=== PATIENT | female | born 1980 | race Caucasian/White ===

== ENCOUNTER 2018-04-09 12:12 | Emergency (ER) | payer SELFPAY, OTHER ==
[2018-04-09 13:13] LABS: CLARITY,URINE TURBID; COLOR,URINE RED; GLUCOSE,URINE NEGATIVE (NEG); PROTEIN,URINE >=300 mg/dL (NEG-TRACE)
[2018-04-09 13:21] LABS: RBC,URINE TNTC /HPF (0-2)
[2018-04-09 13:22] LABS: BACTERIA,URINE FEW /HPF (0-FEW)
== END 2018-04-09 13:55 | disposition home or self-care (01) ==
LOC: ER 13:55
DX: N39.0 Urinary tract infection, site not specified (principal); E05.90 Thyrotoxicosis, unspecified without thyrotoxic crisis or storm; Z98.51 Tubal ligation status; Z90.710 Acquired absence of both cervix and uterus
CPT/HCPCS: 81001; 99283